=== PATIENT | female | born 1980 | race Caucasian/White ===

== ENCOUNTER 2019-08-03 15:55 | Emergency (ER) | payer BC ==
[~2019-08-03] VITALS: Ht 168.9 cm; Wt 59.0 kg
[2019-08-03 16:00] VITALS: BP 140/88
--- NOTE | 2019-08-03 16:00 | NUR ---
ED Nurse Note: Jonny brought in by ambulance c/o overdose, patient states that she took a oxycodone 15mg. at around 1430 and was found unconscious, oxycodone was her friends, patient does not have any suicidal ideation nor does she want to hurt herself. o2 sat at 100% airway is clear and intact, patient placed on a monitor tech. will continue to monitor
[2019-08-03 17:30] VITALS: BP 140/88
--- NOTE | 2019-08-03 17:30 | NUR ---
ER DISCHARGE NOTE: Patient is cleared to be discharged per ERMD, pt is aox4, on room air, with stable vital signs. pt was given dc and prescription instructions, pt was able to verbalize understanding, pt id band and iv site removed without complications. pt is able to ambulate with steady gait. pt took all belongings.
--- NOTE | 2019-08-03 22:31 | Emergency Room Report ---
History of Present Illness General Chief Complaint: Overdose Source: Patient, Medical Record Present Illness HPI 39-year-old female presents ED for evaluation. Patient brought in by EMS status post overdose. Patient had pinpoint pupils and slow breathing. Was given Narcan at work by EMS. Patient is now more awake alert oriented. Patient admits to taking Percocet for hip pain which is chronic. Was also given OxyContin by her friend which she took today for the first time. Patient states she was not trying to hurt herself. States she feels very upset that she overdosed. Denies alcohol use. Denies any other drug use. No other aggravating relieving factors. Denies any other associated symptoms Allergies: Coded Allergies: PENICILLINS (Verified Allergy, Unknown, 08/03/19) Patient History Past Medical History: none Past Surgical History: none Pertinent Family History: none Social History: Denies: smoking, alcohol use, drug use Now: No Immunizations: UTD Reviewed Nursing Documentation: PMH: Agreed; PSxH: Agreed Nursing Documentation-PMH Past Medical History: No History, Except For Review of Systems All Other Systems: negative except mentioned in HPI Physical Exam Vital Signs Date Time Temp Pulse Resp B/P (MAP) Pulse Ox O2 Delivery O2 Flow Rate FiO2 08/03/19 15:48 98.2 88 18 164/100 (121) 99 Room Air Sp02 EP Interpretation: reviewed, normal General Appearance: no apparent distress, alert, GCS 15, non-toxic Head: normocephalic, atraumatic Eyes: bilateral eye normal inspection, bilateral eye PERRL ENT: hearing grossly normal, normal pharynx, no angioedema, normal voice Neck: full range of motion, supple/symm/no masses Respiratory: chest non-tender, lungs clear, normal breath sounds, speaking full sentences Cardiovascular #1: regular rate, rhythm, no edema Cardiovascular #2: 2+ carotid (R), 2+ carotid (L), 2+ radial (R), 2+ radial (L) , 2+ dorsalis pedis (R), 2+ dorsalis pedis (L) Gastrointestinal: normal bowel sounds, non tender, soft, non-distended, no guarding, no rebound Rectal: deferred Genitourinary: normal inspection, no CVA tenderness Musculoskeletal: back normal, gait/station normal, normal range of motion, non- tender Neurologic: alert, oriented x3, responsive, motor strength/tone normal, sensory intact, speech normal Psychiatric: judgement/insight normal, memory normal, anxious Reflexes: 3+ bicep (R), 3+ bicep (L), 3+ tricep (R), 3+ tricep (L), 3+ knee (R) , 3+ knee (L) Lymphatic: no adenopathy Medical Decision Making Diagnostic Impression: Primary Impression: Drug overdose Qualified Codes: T50.901A - Poisoning by unspecified drugs, medicaments and biological substances, accidental (unintentional), initial encounter ER Course Hospital Course 39 yo F presents to ED s/p overdose on percocet and oxycontin. given narcan in field Clinical course Patient placed on stretcher. Her initial history physical exam reveals male in no acute distress. Awake alert oriented x3. Appears anxious but answering questions appropriately. No signs of SI or HI. When IV fluids. Vitals stable. Observed for 2 hours as Narcan has lasting effect of 2 hours. Patient allowed to rest in now awake alert oriented x3. Sofya findings with patient. Instructed on dangers of narcotic use. Patient states that she will talk to her PMD about discontinuing Percocet. Safe for discharge for close outpatient follow-up Diagnosis - drug overdose stable and discharged to home. Followup with PMD. Return to ED if symptoms recur or worsen Last Vital Signs Date Time Temp Pulse Resp B/P (MAP) Pulse Ox O2 Delivery O2 Flow Rate FiO2 08/03/19 17:30 98.2 56 18 140/88 99 Room Air Status: improved Disposition: HOME, SELF-CARE Condition: Stable Departure Forms: Return to Work Return to Work Date: Aug 06, 2019 Work Restrictions: None Patient Instructions: Narcotic Overdose Scar Back MD Aug 03, 2019 22:31
== END 2019-08-03 17:30 | disposition home or self-care (01) ==
LOC: EDBD 15:55 → EMR 16:00
DX: T50.901A Poisoning by unspecified drugs, medicaments and biological substances, accidental (unintentional), initial encounter (principal); G89.29 Other chronic pain; M25.559 Pain in unspecified hip; Z88.0 Allergy status to penicillin; Y92.9 Unspecified place or not applicable
CPT/HCPCS: 96360; 99284